=== PATIENT | male | born 1945 | race Caucasian/White ===

== ENCOUNTER 2023-06-25 11:32 | Day surgery (SDC) | payer BC ==
[2023-06-25] VITALS (9 sets, daily range): BP systolic 114–151; BP diastolic 79–104; PULSE 56–90; RESP 16; TEMP 97.6; O2SAT 97–99
[~2023-06-25] VITALS: Ht 182.9 cm; Wt 100.8 kg
[2023-06-25] MEDS ORDERED: MIDAZolam 1mg/ml 10ml vial IV ONE (11:50)
[2023-06-25] MEDS ORDERED: normal saline 1000ml 1,000 ML IV SCH (11:50)
[2023-06-25] MEDS ORDERED: fentaNYL/PF 50MCG/1 ML 2ML syringe IV ONE (11:50)
[2023-06-25] MEDS ORDERED: AMI200T PO (12:07)
[2023-06-25] MEDS ORDERED: ATOR20TA66 PO (12:07)
[2023-06-25] MEDS ORDERED: LOSA100T58 PO (12:07)
[2023-06-25] MEDS ORDERED: TRAZ-256 PO (12:07)
[2023-06-25] MEDS ORDERED: APIX5TAB3 PO (12:07)
[2023-06-25] MEDS ORDERED: METO-395 PO (12:07)
== END 2023-06-25 14:45 | disposition home or self-care (01) ==
LOC: SSTAY O 11:32
PROVIDERS: ATTEND Student in an Organized Health Care Education/Training Program
DX: I48.91 Unspecified atrial fibrillation (principal); I11.0 Hypertensive heart disease with heart failure; I50.9 Heart failure, unspecified; I42.9 Cardiomyopathy, unspecified; E78.5 Hyperlipidemia, unspecified; I71.21 Aneurysm of the ascending aorta, without rupture; M54.40 Lumbago with sciatica, unspecified side; Z79.01 Long term (current) use of anticoagulants; Z79.899 Other long term (current) drug therapy
CPT/HCPCS: 92960; 93005; J2250; J3010; J7030; A4620